=== PATIENT | male | born 1960 | race Caucasian/White ===

== ENCOUNTER 2017-09-11 07:58 | Outpatient (CLI) | payer BC ==
--- NOTE | 2017-09-11 09:52 | MRI ---
AAACERVICAL SPINE MRI WITHOUT CONTRAST: Date: 09/11/17 HISTORY: Numbness in both hands x1 year. COMPARISON: None. TECHNIQUE: Cervical spine MRI is performed without intravenous Gadolinium administration. Multisequential, multi planar imaging is performed. FINDINGS: Appropriate T1 marrow signal intensity of the cervical vertebra. Cervical spine vertebral body height is maintained. No fracture. No significant STIR hyperintensity to suggest edema or ligamentous injur y. Visualized brain parenchyma, cervicomedullary junction, cervical cord, and the upper thoracic cord romero ve a normal size and signal intensity. C2-C3: No significant disc osteophyte complex. No significant central canal stenosis. Foramina are patent. C3-C4: No significant disc osteophyte complex. No significant central canal stenosis or foraminal narrowing. C4-C5: No significant disc osteophyte complex. No significant central canal stenosis. Foramina are patent. C5-C6: Broad based disc osteophyte complex abuts the thecal sac. Ventral subarachnoid space is maintained. M ild flattening of the right hemicord. Minimal T2 hyperintensity of the right hemicord, likely [place] . Degenerative changes of bilateral uncovertebral joints results in moderate bilateral foraminal narr owing. C6-C7: No significant disc osteophyte complex. No significant central canal stenosis. Neural foramina are pa tent. C7-T1: No significant disc osteophyte complex. No significant central canal stenosis. Neural foramina are pa tent. IMPRESSION: Degenerative disc disease at C5-C6 and C6-C7 as detailed above. POS: OFF
== END 2017-09-11 07:59 | disposition home or self-care (01) ==
LOC: MRI 07:58
PROVIDERS: ATTEND Neurological Surgery
DX: M47.892 Other spondylosis, cervical region (principal); M54.2 Cervicalgia; M50.322 Other cervical disc degeneration at C5-C6 level; M50.323 Other cervical disc degeneration at C6-C7 level
CPT/HCPCS: 72141

== ENCOUNTER 2017-10-21 10:50 | Outpatient (CLI) | payer BC ==
--- NOTE | 2017-10-21 13:04 | RAD ---
CERVICAL SPINE: Date: 10/21/17 HISTORY: Cervical spondylolysis. Neck pain. Symptoms x1 year. COMPARISON: None. CORRELATION: Cervical spine MRI dated 09/17/17. FINDINGS: In the neutral position, there is no significant spondylolisthesis. There is moderate degenerative ch shila at C5-C6. Upon extension and flexion, no abnormal motion. IMPRESSION: Degenerative changes at C5-C6. POS: RACHAEL
== END 2017-10-21 10:51 | disposition home or self-care (01) ==
LOC: SCSRAD 10:50
PROVIDERS: ATTEND Neurological Surgery
DX: M47.892 Other spondylosis, cervical region (principal)
CPT/HCPCS: 72040

== ENCOUNTER 2017-10-31 05:44 | Day surgery (SDC) | payer BC ==
[2017-10-30 10:48] VITALS: BMI 38.2
[2017-10-31] MEDS ORDERED: Midazolam HCl 2 mg/2 ml Vial ONE (06:14)
[2017-10-31] MEDS ORDERED: Fentanyl 250 MCG/5 ML VIAL ONE (06:14)
[2017-10-31] MEDS ORDERED: Sodium Chloride 0.9% 10 ML ONE (06:16)
[2017-10-31] MEDS ORDERED: Thrombin 5000 UNITS/5 ML VIAL ONE (06:17)
[2017-10-31] MEDS ORDERED: CEFAZOLIN/Water 2 GM/20 ML SYRINGE ONE (06:31)
[2017-10-31 06:35] LABS: Hemoglobin 15.6 g/dL (14.0-18.0); Mean Corpuscular HGB CONC 33.1 g/dL (32.0-36.0); Mean Corpuscular Hemoglobin 30.2 pg (27.0-31.0); Mean Corpuscular Volume 91.1 fl (80.0-94.0); Mean Platelet Volume 7.2 fL (7.4-10.4); Platelet Count 219 thou/uL (130-400); RBC Distribution Width 11.8 % (11.5-14.5); Red Blood Cell (RBC) Count 5.18 mill/uL (4.70-6.10); White Blood Cell (WBC) Count 5.2 thou/uL (4.8-10.8)
[2017-10-31 06:44] LABS: PTT 28.5 SEC (22.9-36.1)
[2017-10-31 06:48] LABS: Prothrombin Time 13.5 SEC (12.0-14.7)
[2017-10-31] MEDS ORDERED: Fentanyl 100 MCG/2 ML VIAL ONE ×2 (07:47→10:14)
[2017-10-31] MEDS ORDERED: Morphine 4 MG/ML VIAL ONE (10:54)
--- NOTE | 2017-10-31 11:15 | OP ---
DATE OF PROCEDURE: 10/31/2017 SURGEON: Luis Lord M.D. MEDICAL TECHNICIAN: Demian Garber PA-C. PREOPERATIVE INDICATION: Treat pain, prevent neurological deterioration. PREOPERATIVE DIAGNOSES: Intervertebral disk disease at C5-C6 with C6 radiculopathy. POSTOPERATIVE DIAGNOSES: Intervertebral disk disease at C5-C6 with C6 radiculopathy. OPERATIVE PROCEDURE: Anterior cervical diskectomy, intervertebral arthrodesis, placement of interver tebral biomechanical device, local morselized autograft, morselized Allograft, anterior cervical plat ing C5-C6, operating microscope. PREOPERATIVE MEDICATION: Ancef 2 grams IV. DRAIN NUMBER: Zero. DRAIN TYPE: None. OPERATIVE DICTATION: The patient was brought to the operating room. General endotracheal anesthesia was induced. The patient's head was positioned on a gel-filled donut shaped head rest and a lateral fluoro radiograph was used to plan our incision. The right side of the neck was sterilely prepped a nd draped. We opened with a 15 blade knife and controlled bleeding with bipolar cautery. We dissect ed sharply to the platysma and cut this muscle in line with our incision. We continued our dissectio n medial to the sternocleidomastoid and lateral to the trachea and esophagus. We arrived to the prev ertebral space and placed a marker at C5-C6. We took a lateral fluoro radiograph to confirm the leve l upon which we were operating. We then elevated the longus colli muscles off the anterior surface o f C5 and C6, and placed a self-retaining retractor beneath them. Distraction pins were placed at C5 and C6 and we distracted across the intervening interspace. We incised the interspace with a 15 blad e knife and removed disk contents using curettes and rongeurs. The operative microscope was brought in the field. Under microscopic magnification using microsurgical techniques, we removed the remainder of the inter vertebral disk. We accessed the ventral epidural space with a micro curet and used a Kerrison rongeu r to remove posterior osteophytes from C5 and C6 and posterior longitudinal ligament across the entir e interspace from one nerve root to the other. We decompressed the dura fully, as well as both exiti ng nerve roots. We prepared the endplates for grafting with a curet and measured the height of the i nterspace to 7 mm. Osteophytes that had been removed were cleaned of their soft tissue attachments, morselized and added to demineralized bone matrix as our fusion substrate. The substrate was packed in the 7 mm PEEK intervertebral graft and that graft was advanced into the interspace under radiograp hic guidance to the appropriate depth. We then removed our distraction pins and operating microscope . A 14 mm anterior cervical plate was brought into the field. We drilled airline transport pilot holes through the pl ate into C5 and C6 and affixed the plate using 14 mm screws. We engaged the locking mechanism over e ach of the 4 screws. AP and lateral fluoro radiographs confirmed adequate position of our instrument ation. We irrigated copiously with bacitracin irrigation. Hemostasis was excellent. We closed the wound in anatomic layers and we applied a sterile dressing. This was a clean case and no contaminati on.
[2017-10-31] MEDS ORDERED: HYDROcodone/Acetaminophen 5/325 mg Tablet ONE ×2 (12:01→12:06)
== END 2017-10-31 12:30 | disposition home or self-care (01) ==
LOC: SDC 05:44
PROVIDERS: ATTEND Neurological Surgery
PROC: 0RG10A0 Fusion of Cervical Vertebral Joint with Interbody Fusion Device, Anterior Approach, Anterior Column, Open Approach (ICD-10-PCS; principal; 2017-10-31)
PROC: 0RT30ZZ Resection of Cervical Vertebral Disc, Open Approach (ICD-10-PCS; principal; 2017-10-31)
DX: M50.122 Cervical disc disorder at C5-C6 level with radiculopathy (principal); G47.33 Obstructive sleep apnea (adult) (pediatric); K21.9 Gastro-esophageal reflux disease without esophagitis; N52.9 Male erectile dysfunction, unspecified; Z79.899 Other long term (current) drug therapy; Z99.89 Dependence on other enabling machines and devices
CPT/HCPCS: 76001; 85027; 85610; 85730; 96374; A4216; C1713; C1776; J2250; J2270; J3010; J3490

== ENCOUNTER 2017-12-25 08:02 | Outpatient (CLI) | payer BC ==
--- NOTE | 2017-12-25 08:37 | RAD ---
CERVICAL SPINE 2 VIEWS: Date: 12/25/17 HISTORY: M54.12, cervical radiculopathy. COMPARISON: Cervical spine radiographs dated 10/21/17. FINDINGS: From the comparison examination, there has been interval placement of ACDF hardware at C5-6. Satisfac tory appearance of hardware. No acute fracture or malalignment. No significant listhesis. IMPRESSION: Satisfactory appearance of ACDF hardware. POS: GABBY
== END 2017-12-25 08:03 | disposition home or self-care (01) ==
LOC: TBSIIMAG 08:02
PROVIDERS: ATTEND Neurological Surgery
DX: M54.12 Radiculopathy, cervical region (principal); Z98.1 Arthrodesis status
CPT/HCPCS: 72040

== ENCOUNTER 2018-04-06 10:32 | Outpatient (CLI) | payer BC ==
--- NOTE | 2018-04-06 13:04 | RAD ---
PA AND LATERAL CHEST XRAY: DATE: 04/06/18. HISTORY: Bronchitis, fever, and cough. COMPARISON: 08/29/13. FINDINGS: Postsurgical changes related to anterior cervical fusion are now noted. A metallic loop recorder no w overlies the left lung base within the subcutaneous soft tissues left chest. Cardiac silhouette is at the upper limits of normal in size and stable in comparison to the prior study. Pulmonary vascul ature is within normal limits. The lungs are clear. Mild degenerative change is seen in the spine. IMPRESSION: No acute cardiopulmonary process. POS: H
== END 2018-04-06 10:33 | disposition home or self-care (01) ==
LOC: SCSRAD 10:32
PROVIDERS: ATTEND Nurse Practitioner Family
DX: J40 Bronchitis, not specified as acute or chronic (principal)
CPT/HCPCS: 71046

== ENCOUNTER 2020-08-22 13:36 | Outpatient (CLI) | payer BC ==
--- NOTE | 2020-08-22 15:00 | MRI ---
MRI of thelumbar spine with and without contrast: 08/22/2020 COMPARISON:None available HISTORY:Right hip pain for 6 months, no history of surgery TECHNIQUE: Multiplanar multisequence MR imaging of thelumbar spine with and without contrast Findings:On the basis of 5 lumbar type vertebral bodies, the conus medullaris terminates at T12-L1. The sagittal STIR imaging demonstrates mild edematous degenerative endplate change involving the supe rior endplate of L4 posteriorly on the right. T12-L1: Mild bilateral facet hypertrophy. Mild anterior osteophyte formation. No significant central canal or neural foraminal stenosis. L1-2: Intervertebral disc height and signal intensity appears within normal limits. Mild bilateral facet hypertrophy is noted with no significant central canal or neural foraminal steno sis. L2-3: Mild bilateral facet hypertrophy. Intervertebral disc height and signal intensity is within nor mal limits. No significant central canal or neural foraminal stenosis. L3-4: There is disc space narrowing with disc desiccation and disc bulge. There is a right paracentra l/subarticular disc protrusion measuring 4 mm in AP dimension and 7 mm in transverse dimension. This causes mild right-sided central canal stenosis with a moderate degree of right lateral recess st enosis. Mild bilateral facet hypertrophy with mild bilateral neural foraminal stenosis. L4-5: There is normal disc height and signal intensity. There is significant bilateral facet hypertro phy, left greater than right. There is mild central canal stenosis/left lateral recess stenosis. There is mild/moderate bilateral n eural foraminal stenosis, left greater than right. L5-S1: There is disc space narrowing with disc desiccation. Bilateral facet hypertrophy, left greater than right. No significant central canal stenosis. There is moderate left neural foraminal stenosis. No significant right neural foraminal stenosis. The imaged retroperitoneal structures appear grossly unremarkable Postcontrast imaging of the lumbar spine demonstrates no abnormal enhancement involving the contents of the thecal sac, the intervertebral discs, or the imaged osseous structures. There is mild enhancement of the soft tissues posterior to the facet joints at L4-5, likely reflecting inflammatory change associated with facet degenerative disease. IMPRESSION:Lumbar spine degenerative change as detailed above, most prominent on the right at the L3- 4 level.
== END 2020-08-22 13:37 | disposition home or self-care (01) ==
LOC: TBSIIMAG 13:36
PROVIDERS: ATTEND Family Medicine
DX: G89.29 Other chronic pain (principal); M47.816 Spondylosis without myelopathy or radiculopathy, lumbar region
CPT/HCPCS: 72158; 82565

== ENCOUNTER 2020-09-14 09:36 | Outpatient (CLI) | payer BC ==
--- NOTE | 2020-09-14 10:05 | RAD ---
3 views lumbar spine: 09/14/2020 COMPARISON: None HISTORY: Back pain with left lower extremity radiculopathy FINDINGS: Neutral, flexion, and extension lateral examination demonstrates anterolisthesis at L4-5 me asuring in the 3-4 mm. T11-12 and T12-L1 disc space narrowing with degenerative endplate change and anterior osteophyte form ation noted. Multilevel lower lumbar spine facet hypertrophy. IMPRESSION: Degenerative changes as described above. Recommend MRI if there are radicular symptoms.
== END 2020-09-14 09:37 | disposition home or self-care (01) ==
LOC: TBSIIMAG 09:36
PROVIDERS: ATTEND Physician Assistant
DX: M51.26 Other intervertebral disc displacement, lumbar region (principal); M47.816 Spondylosis without myelopathy or radiculopathy, lumbar region
CPT/HCPCS: 72100

== ENCOUNTER 2020-10-03 07:49 | Outpatient (CLI) | payer BC | END 2020-10-03 07:50 | disposition home or self-care (01) | LOC: BICRAD 07:49 | PROVIDERS: ATTEND Family Medicine | DX: Z01.818 Encounter for other preprocedural examination (principal) | CPT/HCPCS: 71046 ==

== ENCOUNTER 2023-09-06 11:38 | Emergency (ER) | payer BC, OTHER ==
[2023-09-06] MEDS ORDERED: Ondansetron PF 4 MG/2 ML Vial ONE (11:53)
[2023-09-06] MEDS ORDERED: fentaNYL 50 mcg/mL 1 mL Vial ONE (11:53)
[2023-09-06] MEDS ORDERED: Boostrix 0.5 ML (Tdap) VIAL (>/=7 yrs of age) ONE (12:45)
[2023-09-06 12:57] LABS: #Monocytes 0.7 thou/uL (0.11-0.59); #Neutrophils 8.2 thou/uL (1.40-6.50); %Basophils 0.2 % (0.0-1.0); %Eosinophils 0.4 % (0.0-10.0); %Lymphocytes 17.1 % (21.0-51.0); %Monocytes 6.1 % (0.0-10.0); %Neutrophils 73.6 % (42.0-75.0); Hematocrit 48.8 % (42.0-52.0); Hemoglobin 16.3 g/dL (14.0-18.0); Mean Corpuscular HGB CONC 33.4 g/dL (32.0-36.0); Mean Corpuscular Hemoglobin 30.7 pg (27.0-31.0); Mean Corpuscular Volume 91.9 fl (78.0-98.0); Mean Platelet Volume 10.1 fL (7.4-10.4); Platelet Count 184 10x3/uL (130-400); RBC Distribution Width 13.2 % (11.5-14.5); Red Blood Cell (RBC) Count 5.31 mill/uL (4.70-6.10); White Blood Cell (WBC) Count 11.2 10x3/uL (4.8-10.8)
[2023-09-06 13:15] LABS: ALT (SGPT) 28 U/L (8-55); AST (SGOT) 34 U/L (5-34); Albumin 4.4 g/dL (3.4-4.8); Alkaline Phosphatase 84 U/L (40-110); Anion Gap 12 mmol/L (10-20); BUN (Urea Nitrogen) 30 mg/dL (8.4-25.7); Bilirubin, Total 0.9 mg/dL (0.2-1.2); Calc. Creatinine Clearance 0 mL/min (70-130); Carbon Dioxide 24 mmol/L (23-31); Chloride 103 mmol/L (98-107); Estimated GFR 90; Globulin 2.6 g/dL (2.4-3.5); Glucose 100 mg/dL (80-115); Lipase 27 U/L (8-78); Potassium 4.2 mmol/L (3.5-5.1); Sodium 135 mmol/L (136-145)
[2023-09-06] MEDS ORDERED: Iopamidol-370 76% 500 ML MDV (1 ML CHARGE) ONE (15:26)
== END 2023-09-06 13:59 | disposition home or self-care (01) ==
LOC: ERS 11:38
DX: M54.50 Low back pain, unspecified (principal); W14.XXXA Fall from tree, initial encounter
CPT/HCPCS: 70450; 71045; 71260; 72125; 72170; 74177; 80053; 83690; 85025; 90471; 90715; 93005; 96374; 96375; J2405; J3010; Q9967